=== PATIENT | female | born 1940 | race Two or more races ===

== ENCOUNTER 2017-12-29 06:47 | Emergency (ER) | payer MEDICARE ==
[~2017-12-29] VITALS: Ht 170.2 cm; Wt 74.8 kg
[2017-12-29 06:49] VITALS: BP 121/76
--- NOTE | 2017-12-29 07:33 | Emergency Room Report ---
History of Present Illness General Chief Complaint: Multiple Trauma/Fall Source: Patient, Medical Record, EMS Present Illness HPI This patient presents from a alf facility. She has a history of dementia, coronary artery disease/congestive heart failure, osteoporosis. History is per EMS and medical record because the patient is only oriented to self he does not remember the incident. Per report, the patient had fallen onto her knees. She had complained of right knee pain, although, she complained of no pain at this time. The patient herself has no other complaints. The fall was witnessed. The patient was found on her knees and without evidence of head injury. She has no recent illness. There are no other complaints. Allergies: Coded Allergies: PAPRIKA (Verified Allergy, Unknown, 12/29/17) Patient History Past Medical History: see triage record, HTN, [place], CAD, CHF, dementia, other - Breast CA, LBBB Social History: Denies: smoking, alcohol use, drug use Last Menstrual Period: na Now: No Reviewed Nursing Documentation: PMH: Agreed; PSxH: Agreed Nursing Documentation-PMH Past Medical History Deferred: Pt Cognitively Impaired Past Medical History: No History, Except For Hx Cardiac Problems: Yes - CHF, cardio megaly, left bundle branch block Hx Hypertension: Yes Hx Neurological Problems: Yes - Dementia Review of Systems All Other Systems: negative except mentioned in HPI Physical Exam Vital Signs Date Time Temp Pulse Resp B/P (MAP) Pulse Ox O2 Delivery O2 Flow Rate FiO2 12/29/17 06:35 98.1 103 18 121/76 97 Room Air Sp02 EP Interpretation: reviewed, normal General Appearance: no apparent distress, alert, GCS 15, non-toxic Head: normocephalic, atraumatic Eyes: bilateral eye normal inspection, bilateral eye PERRL ENT: hearing grossly normal, normal pharynx, no angioedema, normal voice Neck: full range of motion, supple/symm/no masses Respiratory: chest non-tender, lungs clear, normal breath sounds, no respiratory distress, no retraction, no accessory muscle use, speaking full sentences Cardiovascular #1: no edema, tachycardia Gastrointestinal: normal bowel sounds, non tender, soft, non-distended, no guarding, no rebound Rectal: deferred Musculoskeletal: back normal, normal range of motion, non-tender, other - Both knees with mild ecchymosis/erythema. No pain w/ ROM. No joint swelling. No bony deformity. Neurologic: alert, responsive, motor strength/tone normal, sensory intact, speech normal, other - At baseline. Oriented x1. Psychiatric: mood/affect normal, no suicidal/homicidal ideation Skin: no rash, warm/dry, well hydrated, other - See above in [facility] Medical Decision Making Diagnostic Impression: Primary Impression: Fall Additional Impressions: Contusion of knee, left Contusion of knee, right UTI (urinary tract infection) ER Course This patient has a clinical presentation consistent with knee contusions. The patient's exam was very benign and so I did not feel that plain film x-rays of the knees are indicated. Given the patient's age, I did go ahead and obtain a head CT as a precaution, although there was no report of head injury. CT of the head was unremarkable. Basic labs were obtained include CBC and CMP. The patient's white blood cell count is slightly elevated. The patient has a history of urinary tract infections. I plan on obtaining a urinalysis, however , the patient was unable to give a sample and the patient and family declined straight catheterization. The patient does have a history of urinary tract infections and after further discussion with the family I decided to treat with a course of antibiotics as a precaution. The family declined placement of an IV as the initial attempt was unsuccessful. The patient has no physical exam findings or history concerning for pneumonia or other infection. I did not identify an emergency medical condition. The patient was given return precautions and followup instructions. Further discussion with the family and the patient is DO NOT RESUSCITATE and only comfort care measures. They did agree to the antibiotics. Laboratory Tests Test 12/29/17 07:50 White Blood Count 12.8 K/UL (4.8-10.8) H Red Blood Count 4.82 M/UL (4.20-5.40) Hemoglobin 13.7 G/DL (12.0-16.0) Hematocrit 42.8 % (37.0-47.0) Mean Corpuscular Volume 89 FL (80-99) Mean Corpuscular Hemoglobin 28.5 PG (27.0-31.0) Mean Corpuscular Hemoglobin Concent 32.1 G/DL (32.0-36.0) Red Cell Distribution Width 12.8 % (11.6-14.8) Platelet Count 197 K/UL (150-450) Mean Platelet Volume 10.4 FL (6.5-10.1) H Neutrophils (%) (Auto) % (45.0-75.0) Lymphocytes (%) (Auto) % (20.0-45.0) Monocytes (%) (Auto) % (1.0-10.0) Eosinophils (%) (Auto) % (0.0-3.0) Basophils (%) (Auto) % (0.0-2.0) Differential Total Cells Counted 100 Neutrophils % (Manual) 82 % (45-75) H Lymphocytes % (Manual) 7 % (20-45) L Monocytes % (Manual) 11 % (1-10) H Eosinophils % (Manual) 0 % (0-3) Basophils % (Manual) 0 % (0-2) Band Neutrophils 0 % (0-8) Platelet Estimate Adequate Platelet Morphology Normal Red Blood Cell Morphology Normal Sodium Level 140 MMOL/L (136-145) Potassium Level 4.2 MMOL/L (3.5-5.1) Chloride Level 105 MMOL/L (98-107) Carbon Dioxide Level 24 MMOL/L (21-32) Anion Gap 11 mmol/L (5-15) Blood Urea Nitrogen 15 mg/dL (7-18) Creatinine 1.2 MG/DL (0.55-1.30) Estimate Glomerular Filtration Rate mL/min (>60) Glucose Level 103 MG/DL (74-106) Calcium Level 10.2 MG/DL (8.5-10.1) H EKG Diagnostic Results Rate: normal Rhythm: other - L. BBB ST Segments: no acute changes Rhythm Strip Diag. Results EP Interpretation: yes Rate: 80's Rhythm: NSR, no PVC's, no ectopy CT/MRI/US Diagnostic Results CT/MRI/US Diagnostic Results : Imaging Test Ordered: CT head Impression No acute findings. Specifically no intracranial bleed, mass effect or edema. See official report. Last Vital Signs Date Time Temp Pulse Resp B/P (MAP) Pulse Ox O2 Delivery O2 Flow Rate FiO2 12/29/17 06:49 97 26 12/29/17 06:49 98.1 121/76 97 Room Air Status: improved Disposition: HOME, SELF-CARE Condition: Improved Patient Instructions: Fall Prevention in Hospitals, Adult Basia Mayer DO Dec 29, 2017 07:33
[2017-12-29 08:07] LABS: HEMATOCRIT 42.8 % (37.0-47.0); HEMOGLOBIN 13.7 G/DL (12.0-16.0); MEAN CORPUSCULAR VOLUME 89 FL (80-99); PLATELET COUNT 197 K/UL (150-450); RED BLOOD COUNT 4.82 M/UL (4.20-5.40); RED CELL DISTRIBUTION WIDTH 12.8 % (11.6-14.8); WHITE BLOOD COUNT 12.8 K/UL (4.8-10.8)
[2017-12-29 08:16] LABS: ANION GAP 11 mmol/L (5-15); BLOOD UREA NITROGEN 15 mg/dL (7-18); CALCIUM 10.2 MG/DL (8.5-10.1); CARBON DIOXIDE 24 MMOL/L (21-32); CHLORIDE 105 MMOL/L (98-107); CREATININE 1.2 MG/DL (0.55-1.30); POTASSIUM 4.2 MMOL/L (3.5-5.1); SODIUM 140 MMOL/L (136-145)
--- NOTE | 2017-12-29 08:58 | Diagnostic Imaging Report ---
Indication: Head trauma. Headache Technique: Contiguous 5 mm thick transaxial imaging of the head obtained in a Siemens Sensation [address] scanner. Soft tissue and bone windows generated. Automatic Exposure Control was utilized. Total Dose length Product (DLP): 1347.[address] Dose Index Volume (CTDIvol): 70.38 mGy Comparison: none Findings: There is moderate prominence of the ventricles, basal cisterns, and cerebral sulci consistent with atrophy. Moderate, nonspecific, white matter hypoattenuation is noted throughout the brain consistent with chronic small vessel disease. There is no midline shift, edema, acute hemorrhage, mass effect, or abnormal extra-axial fluid collections. Bones and extra osseous soft tissues are unremarkable. Impression: No acute intracranial bleed, mass effect or edema. Moderate atrophy of the brain. Evidence of chronic small vessel disease involving white matter tracts. The CT scanner at [facility] is accredited by the [employer] and the scans are performed using dose optimization techniques as appropriate to a performed exam including Automatic Exposure control.
[2017-12-29 09:00] VITALS: BP 135/65
[2017-12-29] MEDS ORDERED: NITROFURANTOIN100 M2 ORAL (09:23)
[2017-12-29] MEDS ORDERED: PRAVACHOL40 MG ORAL (09:37)
[2017-12-29] MEDS ORDERED: ASPIR 8181 MG ORAL (09:37)
[2017-12-29] MEDS ORDERED: ZYRTEC10 MG ORAL (09:37)
[2017-12-29] MEDS ORDERED: VITAMIN D22000 UNIT PO (09:37)
[2017-12-29] MEDS ORDERED: QUETIAPINE FUMA50 MG ORAL (09:37)
[2017-12-29] MEDS ORDERED: LORAZEPAM0.5 MG ORAL (09:37)
[2017-12-29] MEDS ORDERED: DONEPEZIL HCL10 M2 ORAL (09:37)
[2017-12-29 11:11] VITALS: BP 130/61
[2017-12-29 12:25] VITALS: BP 130/61
--- NOTE | 2017-12-30 18:08 | Cardiology Report ---
APPROVED REPORT EKG Measurement Heart [id number] HI [id number] Normal sinus rhythm Left bundle branch block Abnormal ECG
== END 2017-12-29 12:28 | disposition home or self-care (01) ==
LOC: EDBD 06:47 → EMR 07:30
DX: S80.02XA Contusion of left knee, initial encounter (principal); S80.01XA Contusion of right knee, initial encounter; W19.XXXA Unspecified fall, initial encounter; Y92.9 Unspecified place or not applicable; N39.0 Urinary tract infection, site not specified; I25.2 Old myocardial infarction; I25.10 Atherosclerotic heart disease of native coronary artery without angina pectoris; I11.0 Hypertensive heart disease with heart failure; I50.9 Heart failure, unspecified; F03.90 Unspecified dementia, unspecified severity, without behavioral disturbance, psychotic disturbance, mood disturbance, and anxiety; Z85.3 Personal history of malignant neoplasm of breast
CPT/HCPCS: 36415; 70450; 80048; 85007; 85025; 93005; 99284